=== PATIENT | female | born 1980 | race Caucasian/White ===

== ENCOUNTER 2016-11-08 07:47 | Emergency (ER) | payer MEDICAID ==
[~2016-11-08] VITALS: Ht 154.9 cm; Wt 84.0 kg
[2016-11-08 07:52] VITALS: BP 125/94; PULSE 79; RESP 16; TEMP 97.6; O2SAT 100
[2016-11-08] MEDS ORDERED: METF500T PO (08:00)
[2016-11-08 08:14] LABS: BLOOD, URINE LARGE (NEG); GLUCOSE,URINE NEG (NEG); KETONE, URINE 15 mg/dL (NEG); NITRITE,URINE NEG (NEG); PH, URINE 5.5 (5.0-8.5)
[2016-11-08 08:20] LABS: METHOD OF COLLECTION CLEAN CATCH; RBC, URINE 100-200 /hpf (0-3); URINE COLOR YELLOW (YELLW/STRAW)
[2016-11-08 08:21] LABS: BACTERIA, URINE OCC /hpf; COMMENT (UR) CULT NOT INDICATED; CULTURE IF INDICATED CULT NOT INDICATED; SQUAMOUS EPITHELIAL CELL URINE > 8 /hpf (0-5)
[2016-11-08] MEDS ORDERED: SODIUM CHLORIDE 0.9% FLUSH 10 ML FLUSH IV FLUSH PRN (08:30)
[2016-11-08] MEDS ORDERED: KETOROLAC TROMETHAMINE 30 MG/ML (IVP) VIAL IVP ONE (08:30)
[2016-11-08] MEDS ORDERED: ONDANSETRON HCL 4 MG/2 ML VIAL IVP ONE (08:30)
[2016-11-08 08:31] LABS: AUTOMATED NEUTROPHIL # 9.7 TH/MM3 (1.8-7.7); BASOPHIL # 0.1 TH/MM3 (0-0.2); EOSINOPHIL # 0.1 TH/MM3 (0-0.4); EOSINOPHIL % 0.7 % (0.0-4.0); HEMATOCRIT 47.6 % (35.0-46.0); LYMPH % 12.4 % (9.0-44.0); LYMPHOCYTE # 1.5 TH/MM3 (1.0-4.8); MEAN CELL VOLUME 85.7 FL (80.0-100.0); MEAN CORPUSCULAR HEMOGLOBIN 28.6 PG (27.0-34.0); MEAN CORPUSCULAR HGB CONC 33.4 % (32.0-36.0); MONO % 3.8 % (0.0-8.0); NEUT % 82.1 % (16.0-70.0); PLATELET COUNT 257 TH/MM3 (150-450); RED BLOOD COUNT 5.56 MIL/MM3 (4.00-5.30); RED CELL DISTRIBUTION WIDTH 12.6 % (11.6-17.2); WHITE BLOOD COUNT 11.9 TH/MM3 (4.0-11.0)
[2016-11-08 08:32] LABS: HEMO FLAGS DIFF FINAL
[2016-11-08 08:38] LABS: CHLORIDE 107 MEQ/L (98-107); POTASSIUM 3.9 MEQ/L (3.5-5.1); SODIUM (NA) 141 MEQ/L (136-145)
[2016-11-08 08:42] LABS: ANION GAP 12 MEQ/L (5-15); BICARBONATE 22.4 MEQ/L (21.0-32.0); BLOOD UREA NITROGEN 20 MG/DL (7-18)
[2016-11-08 08:45] LABS: ALT (GPT) 23 U/L (10-53); AST (GOT) 16 U/L (15-37); GLOMERULAR FILTRATION RATE 63 ML/MIN (>89)
[2016-11-08] MEDS ORDERED: ZOFR4TAB3 SL (08:45)
[2016-11-08] MEDS ORDERED: HYDR-3533 PO (08:45)
[2016-11-08] MEDS ORDERED: TAMS5CAP PO (08:45)
[2016-11-08 08:46] LABS: TOTAL BILIRUBIN ADULT 0.6 MG/DL (0.2-1.0)
--- NOTE | 2016-11-08 08:46 | PD ---
HPI Chief Complaint: Abdominal Pain Time Seen by Provider: 08:20 Travel History International Travel<30 days: No Contact w/Intl Traveler<30days: No Traveled to known affect area: No History of Present Illness HPI 36-year-old female complains of right flank pain which radiates to the right groin. It started several hours prior to ER arrival while the patient was asleep. She has had nausea and vomiting over the past few hours. Drinking water since to cause vomiting. She denies fever her last menstruation started today. She denies urinary frequency and dysuria. Hematuria is reported. In the remote past she had a renal stone and reports today's symptoms to be similar in nature. She reports a past medical history prediabetes. Past surgical history includes a hemorrhoidectomy. She states she takes metformin. NKDA. PFSH Past Medical History Anxiety: Yes Diabetes: Yes (type 2) Patient Takes Glucophage: Yes Kidney Stones: Yes Tetanus Vaccination: < 5 Years Influenza Vaccination: Yes ?: Not LMP: 11/08/16 Past Surgical History Other Surgery: Yes Social History Alcohol Use: Yes (occas.) Tobacco Use: No Substance Use: No Allergies-Medications (Allergen,Severity, Reaction): Coded Allergies: No Known Allergies (Unverified , 11/08/16) Reported Meds & Prescriptions Reported Meds & Active Scripts Active Percocet (Oxycodone-Acetaminophen) 5-325 mg Tab 1-2 Tab PO Q6H PRN Keflex (Cephalexin) 500 Mg Cap 500 Mg PO Q8H Flomax (Tamsulosin HCl) 0.4 Mg Cap 0.4 Mg PO HS Zofran Odt (Ondansetron Odt) 4 Mg Tab 4 Mg SL Q8HR PRN Reported Metformin (Metformin HCl) Unknown Strength Tab Unknown Dose PO BIDPC With meals Review of Systems Except as stated in HPI: all other systems reviewed are Neg Gastrointestinal: Positive: Nausea Genitourinary: Positive: Flank Pain Physical Exam Narrative GENERAL: 36 yo F, WNWD, pleasant, mild distress SKIN: Warm and dry. HEAD: Atraumatic. Normocephalic. EYES: Pupils equal and round. No scleral icterus. No injection or drainage. ENT: No nasal bleeding or discharge. Mucous membranes pink and moist. NECK: Trachea midline. No JVD. CARDIOVASCULAR: Regular rate and rhythm. RESPIRATORY: No accessory muscle use. Clear to auscultation. Breath sounds equal bilaterally. GASTROINTESTINAL: Abdomen soft, non-tender, nondistended. Hepatic and splenic margins not palpable. MUSCULOSKELETAL: Extremities without clubbing, cyanosis, or edema. No obvious deformities. NEUROLOGICAL: Awake and alert. No obvious cranial nerve deficits. Motor grossly within normal limits. Five out of 5 muscle strength in the arms and legs. Normal speech. PSYCHIATRIC: Appropriate mood and affect; insight and judgment normal. Data Data Last Documented VS Vital Signs Date Time Temp Pulse Resp B/P Pulse Ox O2 Delivery O2 Flow Rate FiO2 11/08/16 11:23 76 18 117/67 96 11/08/16 07:52 97.6 VS reviewed Orders Urinalysis - C+S If Indicated (11/08/16 07:57) Ed Urine Pregnancytest Poc (11/08/16 07:57) Complete Blood Count With Diff (11/08/16 08:20) Comprehensive Metabolic Panel (11/08/16 08:20) Lipase (11/08/16 08:20) Iv Access Insert/Monitor (11/08/16 08:20) Ecg Monitoring (11/08/16 08:20) Oximetry (11/08/16 08:20) Ondansetron Inj (Zofran Inj) (11/08/16 08:30) Sodium Chloride 0.9% Flush (Ns Flush) (11/08/16 08:30) Ketorolac Inj (Toradol Inj) (11/08/16 08:30) Ct Abd/Pel W/O Iv Contrast (11/08/16 08:55) Morphine Inj (Morphine Inj) (11/08/16 09:15) Sodium Chlor 0.9% 1000 Ml Inj (Ns 1000 M (11/08/16 09:15) Ceftriaxone Inj (Rocephin Inj) (11/08/16 10:00) Morphine Inj (Morphine Inj) (11/08/16 10:00) Labs Laboratory Tests Test 11/08/16 11/08/16 07:00 08:15 Urine Collection Type CLEAN CATCH Urine Color YELLOW Urine Turbidity CLEAR Urine pH 5.5 Urine Specific [place] 1.026 Urine Protein 100 mg/dL Urine Glucose (UA) NEG mg/dL Urine Ketones 15 mg/dL Urine Occult Blood LARGE Urine Nitrite NEG Urine Bilirubin NEG Urine Leukocyte Esterase NEG Urine RBC 100-200 /hpf Urine WBC 6-8 /hpf Urine Squamous Epithelial > 8 /hpf Cells Urine Bacteria OCC /hpf Urine Yeast (Budding) MOD Microscopic Urinalysis Comment CULT NOT INDICATED Urine Collection Time 07:00 White Blood Count 11.9 TH/MM3 Red Blood Count 5.56 MIL/MM3 Hemoglobin 15.9 GM/DL Hematocrit 47.6 % Mean Corpuscular Volume 85.7 FL Mean Corpuscular Hemoglobin 28.6 PG Mean Corpuscular Hemoglobin 33.4 % Concent Red Cell Distribution Width 12.6 % Platelet Count 257 TH/MM3 Mean Platelet Volume 9.6 FL Neutrophils (%) (Auto) 82.1 % Lymphocytes (%) (Auto) 12.4 % Monocytes (%) (Auto) 3.8 % Eosinophils (%) (Auto) 0.7 % Basophils (%) (Auto) 1.0 % Neutrophils # (Auto) 9.7 TH/MM3 Lymphocytes # (Auto) 1.5 TH/MM3 Monocytes # (Auto) 0.5 TH/MM3 Eosinophils # (Auto) 0.1 TH/MM3 Basophils # (Auto) 0.1 TH/MM3 CBC Comment DIFF FINAL Differential Comment Sodium Level 141 MEQ/L Potassium Level 3.9 MEQ/L Chloride Level 107 MEQ/L Carbon Dioxide Level 22.4 MEQ/L Anion Gap 12 MEQ/L Blood Urea Nitrogen 20 MG/DL Creatinine 1.00 MG/DL Estimat Glomerular Filtration 63 ML/MIN Rate Random Glucose 154 MG/DL Calcium Level 9.9 MG/DL Total Bilirubin 0.6 MG/DL Aspartate Amino Transf 16 U/L (AST/SGOT) Alanine Aminotransferase 23 U/L (ALT/SGPT) Alkaline Phosphatase 63 U/L Total Protein 7.9 GM/DL Albumin 4.2 GM/DL Lipase 135 U/L [facility] Medical Decision Making Medical Screen Exam Complete: Yes Emergency Medical Condition: Yes Differential Diagnosis Constipation, Gastritis, Acute Cholecystitis, Biliary Colic, Pancreatitis, LUIS , Hepatitis, Bowel Obstruction, Cystitis, Mesenteric Ischemia, AAA, Appendicitis , Renal Stone/Hydronephrosis, GERD, perforated viscous Narrative Course CBC & BMP Diagram 11/08/16 08:15 LFTs normal Lipase normal UA hematuria POC : negative The patient's story is most consistent with renal colic/flank pain secondary to ureteral calculus/hydronephrosis. Likelihood of septic stone is considered a fairly low. The patient reports similar prior episodes. The patient notes LMP started yesterday or today with hematuria in this scenario somewhat nonspecific. CT pelvis ordered which demonstrates: Last 24 hours Impressions Abdomen/Pelvis CT 11/08/16 0855 Signed Impressions: Service Date/Time: Tuesday, November 08, 2016 09:03 - CONCLUSION: 1. 5 mm stone in the proximal right ureter with moderate postobstructive changes. There are 2 other punctate nonobstructing stone seen within the collecting system of the right kidney as well these both measure approximately 1-2 mm. Niels Nevarez MD Scripts as below. Return indications discussed. Diagnosis Primary Impression: Hydronephrosis with ureteral calculus Referrals: Pro Nam DO 2 days Additional Instructions: You have a choice when it comes to health care, and we are glad that you chose [facility]. Hopefully, we have met your expectations on today's visit. You are welcome to return to [facility] at any time, as we are committed to meeting the health care needs of our community. Med/Other Pt SpecificInfo: Prescription(s) given Scripts Oxycodone-Acetaminophen (Percocet)5-325 mg Tab1-2 Tab PO Q6H PRN (PAIN SCALE 6 TO 10) #20 TAB Ref 0 Prov:Niesl Madrid MD 11/08/16 Cephalexin (Keflex)500 Mg [id number] Mg PO Q8H #30 CAP Ref 0 Prov:Niels Madrid MD 11/08/16 Tamsulosin (Flomax)0.4 Mg Cap0.4 Mg PO HS #5 CAP Ref 0 Prov:Niels Madrid MD 11/08/16 Ondansetron Odt (Zofran Odt)4 Mg Tab4 Mg SL Q8HR PRN (NAUSEA OR VOMITING) #6 TAB Ref 0 Prov:Niels Madrid MD 11/08/16 Disposition: 01 DISCHARGE HOME Condition: Stable Niels Madrid MD Nov 08, 2016 08:46
[2016-11-08 08:48] LABS: ALKALINE PHOSPHATASE 63 U/L (45-117)
[2016-11-08 09:01] VITALS: BP 115/79; PULSE 84; RESP 18; O2SAT 98
[2016-11-08] MEDS ORDERED: SODIUM CHLOR 0.9% 1000 ML INJ 1,000 ML IV ONE (09:15)
[2016-11-08] MEDS ORDERED: MORPHINE SULFATE 8 MG/ML INJ IV PUSH ONE ×2 (09:15→10:00)
--- NOTE | 2016-11-08 09:31 | RADHPO ---
EXAM DATE/TIME: 11/08/2016 09:03 [place] COMPARISON: No previous studies available for comparison. INDICATIONS : Severe right flank pain since this morning. ORAL CONTRAST: No oral contrast ingested. RADIATION DOSE: 24.09 CTDIvol (mGy) MEDICAL HISTORY : Renal calculi. Diabetes. SURGICAL HISTORY : None. ENCOUNTER: Initial ACUITY: 1 day PAIN SCALE: 10/10 LOCATION: Right flank TECHNIQUE: Volumetric scanning of the abdomen and pelvis was performed. Using automated exposure control and ad justment of the mA and/or kV according to patient size, radiation dose was kept as low as reasonably achievable to obtain optimal diagnostic quality images. FINDINGS: Right kidney/ureter: There is moderate hydronephrosis of the right kidney. There are 2 punctate nonobstructing stones seen within the collecting system. The proximal right ureter is dilated. The examination demonstrates a 5 mm stone in its proximal segment. The more distal portions of ureter are normal in caliber. Left kidney/ureter: The left kidney is normal in size. No stones are seen. The left ureter is followed throughout its cou rse and is unremarkable in appearance. Bladder: The contours of the bladder are unremarkable. Reproductive: Reproductive organs are intact. CT source data: The limited portion of lung base visualized is clear. The appearance of the liver, spleen, pancreas a nd adrenal glands is within normal limits. The abdominal aorta is normal in caliber. There is no retr operitoneal adenopathy. The loops of small and large bowel are unremarkable. There is no free fluid w ithin the pelvis. The osseous structures are intact. CONCLUSION: 1. 5 mm stone in the proximal right ureter with moderate postobstructive changes. There are 2 other p unctate nonobstructing stone seen within the collecting system of the right kidney as well these both measure approximately 1-2 mm. Niels Nevarez MD on November 08, 2016 at 9:27 Board Certified Radiologist. This report was verified electronically.
[2016-11-08] MEDS ORDERED: CEPH-460 PO (09:53)
[2016-11-08] MEDS ORDERED: PERC5TAB12 PO (10:00)
[2016-11-08] MEDS ORDERED: cefTRIAXone INJ 1,000 MG in SODIUM CHLORIDE 0.9% INJ 100 ML IV ONE (10:00)
[2016-11-08 10:15] VITALS: BP 116/61; PULSE 83; RESP 20; O2SAT 99
[2016-11-08 11:23] VITALS: BP 117/67; PULSE 76; RESP 18; O2SAT 96
== END 2016-11-08 11:33 | disposition home or self-care (01) ==
LOC: PHEFT 07:47
DX: N13.2 Hydronephrosis with renal and ureteral calculous obstruction (principal); R11.2 Nausea with vomiting, unspecified; E11.9 Type 2 diabetes mellitus without complications
CPT/HCPCS: 74176; 80053; 81001; 83690; 84703; 85025; 96361; 96365; 96375; 96376; 99284; J0696; J1885; J2270; J2405; J7030